=== PATIENT | female | born 1960 | race Caucasian/White ===

== ENCOUNTER 2022-01-06 07:56 | Day surgery (SDC) | payer OTHER ==
[2022-01-04 13:06] VITALS: BMI 29.9
[2022-01-06 10:56] VITALS: TEMP 97.9
[2022-01-06 11:30] VITALS: BP 105/58; PULSE 75
== END 2022-01-06 10:30 | disposition home or self-care (01) ==
LOC: FASU-ENDO 07:56
PROVIDERS: ATTEND Internal Medicine Gastroenterology
PROC: 0DJD8ZZ Inspection of Lower Intestinal Tract, Via Natural or Artificial Opening Endoscopic (ICD-10-PCS; principal; 2022-01-06 09:01)
DX: Z12.11 Encounter for screening for malignant neoplasm of colon (principal); Z83.71 Family history of colonic polyps; K57.30 Diverticulosis of large intestine without perforation or abscess without bleeding